=== PATIENT | female | born 1960 | race Caucasian/White ===

== ENCOUNTER 2024-02-01 10:19 | Observation (INO) ==
--- NOTE | 2023-11-23 15:31 | PAT Medication Instructions ---
Medication Instructions Date of Service November 23, 2023 Home Medications cholecalciferol (vitamin D3) 50 mcg (2,000 unit) capsule 50 mcg PO QPM esomeprazole magnesium 20 mg capsule,delayed release (Nexium) 20 mg PO QAM famotidine 20 mg tablet 20 mg PO HS PRN gerd levothyroxine 100 mcg capsule 100 mcg PO QAM mecobalamin (vitamin B12) 500 mcg chewable tablet 500 mcg PO QPM meloxicam 15 mg tablet 15 mg PO DAILY PRN Pain duloxetine 20 mg capsule,delayed release 20 mg PO DAILY PRN pain/anxiety ibuprofen 200 mg tablet 600 mg PO Q8H PRN Pain meclizine 25 mg tablet 25 mg PO BID PRN Dizziness ASK your surgeon for instructions meloxicam 15 mg tablet 15 mg PO DAILY PRN Pain ibuprofen 200 mg tablet 600 mg PO Q8H PRN Pain Take morning of surgery With a small sip of water, OTHERWISE NOTHING TO EAT OR DRINK AFTER MIDNIGHT: esomeprazole magnesium 20 mg capsule,delayed release (Nexium) 20 mg PO QAM levothyroxine 100 mcg capsule 100 mcg PO QAM duloxetine 20 mg capsule,delayed release 20 mg PO DAILY PRN pain/anxiety (if needed) meclizine 25 mg tablet 25 mg PO BID PRN Dizziness (if needed) Take evening before surgery cholecalciferol (vitamin D3) 50 mcg (2,000 unit) capsule 50 mcg PO QPM famotidine 20 mg tablet 20 mg PO HS PRN gerd (if needed) mecobalamin (vitamin B12) 500 mcg chewable tablet 500 mcg PO QPM duloxetine 20 mg capsule,delayed release 20 mg PO DAILY PRN pain/anxiety (if needed) meclizine 25 mg tablet 25 mg PO BID PRN Dizziness (if needed) Other Notes If you have any questions please call us at [phone] or [phone] or [phone] or [phone]
--- NOTE | 2023-12-02 14:24 | Anesthesiology Consultation ---
Date of Service December 02, 2023 Assessment & Plan (1) Encounter for pre-operative examination: Chart Review Chart Review: Acceptable Risk for Surgery and Patient seen in Pre Admission Testing Pt currently scheduled as 23 hours observation. If surgeon decides to change patient to Same Day Joint, patient would be acceptable risk for TKA, pending patient is motivated, has good support and surgeon's office completes [facility] Program preop requirements. Per PAT appt on 12/02/23, no recent illness/disease exposures, illness related symptoms, or recent illness/disease positive tests. Will leave to surgeon's discretion if preop Covid testing needed History Surgery Operation Date: 12/22/23 10:55 Proposed Procedures p Right Total Knee Arthroplasty - Keyshawn Haywood MD Height/Weight Height: 5 ft Weight: 54.2 kg Allergies Allergy/AdvReac Type Severity Reaction Status Date / Time No Known Allergies Allergy Verified 12/02/23 13:05 Medications Home Medications Medication Instructions Recorded Confirmed Last Taken cholecalciferol (vitamin D3) 50 50 mcg PO QPM 04/08/23 12/02/23 Unknown mcg (2,000 unit) capsule esomeprazole magnesium 20 mg 20 mg PO QAM 04/08/23 12/02/23 Unknown capsule,delayed release (Nexium) famotidine 20 mg tablet 20 mg PO HS PRN gerd 04/08/23 12/02/23 Unknown levothyroxine 100 mcg capsule 100 mcg PO QAM 04/08/23 12/02/23 Unknown mecobalamin (vitamin B12) 500 mcg 500 mcg PO QPM 04/08/23 12/02/23 Unknown chewable tablet meloxicam 15 mg tablet 15 mg PO DAILY PRN Pain 04/08/23 12/02/23 Unknown duloxetine 20 mg capsule,delayed 20 mg PO DAILY PRN pain/anxiety 11/23/23 12/02/23 Unknown release ibuprofen 200 mg tablet 600 mg PO Q8H PRN Pain 11/23/23 12/02/23 Unknown meclizine 25 mg tablet 25 mg PO BID PRN Dizziness 11/23/23 12/02/23 Unknown walker #1 ea 12/03/23 Unknown Past Medical History Medical History (Updated 12/02/23 @ 14:30 by Flora Kwok PA-C) Arthritis Elevated cholesterol being monitored GERD (gastroesophageal reflux disease) Well controlled and stable with Nexium History of vertigo no current issues- has meclizine PRN Hypothyroidism Situational anxiety Exercise / Class Metabolic Activity II 4-5 Yardwork/Stairs/Walk up hill (one flight of stairs - no chest pain or SOB ) Past Surgical History Surgical History History of anesthesia reaction slow to wake up History of carpal tunnel release left History of section x 1 History of cholecystectomy History of colonoscopy History of dilatation and curettage History of esophagogastroduodenoscopy (EGD) History of postoperative nausea and vomiting History of surgery "blood collection removed from voice box, was in my 40's" History of tooth extraction Past Anesthesia History No Hx of Anesthesia Complications (with exception to slow to wake- groggy- no reintubation or ICU stay; PONV) and No Family Hx of Anesthesia Complications (with exception to sister- slow to wake, hypotension and PONV ) History of PONV No Hx of Motion Sickness, Other (vertigo ) and History of PONV (improved with pre-medication with anti nausea medication ) Social History Smoking Status: Former smoker Do You Dip or Chew Tobacco: No Smoking End Date: 2014 Hx Alcohol Use: Yes Alcohol type: beer alcohol intake frequency: a few times a month substance use type: does not use Review of Systems - Hx of snoring- no witnessed apnea - no hx of sleep study Patient denies chest pain, shortness of breath, dyspnea on exertion, cough, wheezing, palpitations. No hx of seizures, stroke, LA. No hx of blood clots or blood transfusions Physical Exam Vital Signs VITALS BP 119/78 P 69 TEMP 98.0 SP02 97% RESP 16 Constitutional no acute distress ENMT Mouth: no TMJ clicking Thyromental Distance: > or= 3.5 Finger Breadths (3.5) Mallampati Class: I Mouth / Teeth: 2 1. Dental repair Missing molars Permanent bridge to top left side/front area Neck neck extension not limited Respiratory normal respiratory effort; no respiratory distress Auscultation: lungs clear to auscultation bilaterally; no wheezes Cardiovascular Rate/Rhythm: regular rate and regular rhythm Heart Sounds: no murmur Vessels: no carotid bruit Musculoskeletal Spine: + pain with cervical ROM (mild neck stiffness ) Extremities: extremities normal to inspection Psychiatric Orientation: alert Lab Results Anesthesia Preop Results Results Anesthesia Widget: 2 WBC 5.18 K/ul (4.8-10.8) 12/02/23 Hgb 12.2 g/dl (12.0-16.0) 12/02/23 Hct 36.9 % (37.0-47.0) L 12/02/23 Plt 248 K/uL (130-400) 12/02/23 Na 140 mmol/L (136-145) 12/02/23 K 3.8 mmol/L (3.5-5.1) 12/02/23 Cl 107 mmol/L (98-107) 12/02/23 CO2 27 mmol/L (21-32) 12/02/23 BUN 15 mg/dl (6-23) 12/02/23 Creat 0.69 mg/dl (0.6-1.2) 12/02/23 Glucose Level 87 mg/dl (70-99(Fasting)) 12/02/23 PT 10.6 Seconds (9.0-12.0) 12/02/23 PTT 26 Seconds (21-31) 12/02/23 INR 1.0 (0.9-1.1) 12/02/23 Blood Type O Positive 12/02/23 Antibody Screen NEGATIVE 12/02/23 Testing Electrocardiogram Date: 12/02/23 Findings: + SB @ (53bpm) Otherwise normal EKG per cardio Chest X-Ray Date: 12/02/23 FINDINGS: PA and lateral chest radiographs are obtained. No prior studies are available for comparison at the time of dictation. The cardiomediastinal silhouette is unremarkable noting atherosclerotic calcification of the thoracic aorta. The lungs and pleural spaces are clear. There is no pneumothorax. The bony thorax appears intact. Cholecystectomy clips are seen in the right upper quadrant. IMPRESSION: No active disease in the chest.
--- NOTE | 2024-01-24 20:07 | History & Physical Report ---
Date of Service January 24, 2024 Assessment & Plan (1) Degenerative arthritis of knee, bilateral: 63-year-old female with advanced bilateral knee DJD right side greater than left. She has failed conservative measures. She is Akiko proceed with knee replacement. We had scheduled previously but she got canceled due to the IVF saline shortage. This has been corrected and were going to proceed with right knee replacement. The risks of Brenda of total knee replacement were explained and she understands. Informed consent was obtained. She is planned to be discharged to home with home health. Will use aspirin for DVT prophylaxis. (2) GERD (gastroesophageal reflux disease): (3) Hypothyroidism: (4) Elevated cholesterol: History of Present Illness Chief Complaint: . Bilateral knee pain and discomfort right side greater than the left. Primary Care Provider: NO PCP . The patient is a 63-year-old female from [facility] who presents for surgical treatment of her right knee. She has a 4 to 5-year history of increasing bilateral knee pain discomfort is gradually gotten worse over time. She has been through extensive conservative treatment provided at [facility] by both Dr. Cardenas and Dr. Pryor over the years. I have been following for the past year. The injection and become less successful. The right knee bothers him more than the left. She like to proceed with right knee replacement. The patient was previously scheduled for knee surgery. Unfortunately, we had to cancel her surgery due to the IV saline shortage. She now presents for definitive knee replacement of her right knee. Allergies Allergy/AdvReac Type Severity Reaction Status Date / Time No Known Allergies Allergy Verified 01/24/24 13:48 Home Medications Medication Instructions Recorded Confirmed Type cholecalciferol (vitamin D3) 50 50 mcg PO QPM 04/08/23 01/24/24 History mcg (2,000 unit) capsule esomeprazole magnesium 20 mg 20 mg PO QAM 04/08/23 01/24/24 History capsule,delayed release (Nexium) famotidine 20 mg tablet 20 mg PO HS PRN gerd 04/08/23 01/24/24 History levothyroxine 100 mcg capsule 100 mcg PO QAM 04/08/23 01/24/24 History mecobalamin (vitamin B12) 500 mcg 500 mcg PO QPM 04/08/23 01/24/24 History chewable tablet meloxicam 15 mg tablet 15 mg PO DAILY PRN Pain 04/08/23 01/24/24 History duloxetine 20 mg capsule,delayed 20 mg PO DAILY PRN pain/anxiety 11/23/23 01/24/24 History release ibuprofen 200 mg tablet 600 mg PO Q8H PRN Pain 11/23/23 01/24/24 History meclizine 25 mg tablet 25 mg PO BID PRN Dizziness 11/23/23 01/24/24 History walker #1 ea 12/03/23 Rx acetaminophen 500 mg tablet 1,000 mg (2 x 500 mg) PO TID pain 12/20/23 01/24/24 Rx (Tylenol Extra Strength) 30 days #180 tabs aspirin 81 mg tablet,delayed 81 mg PO BID 45 days #90 tabs 12/20/23 01/24/24 Rx release (Jeni Low Dose Aspirin) cefadroxil 500 mg capsule 500 mg PO BID 7 days #14 caps 12/20/23 01/24/24 Rx ketorolac 10 mg tablet 10 mg PO Q6 pain 5 days #20 tabs 12/20/23 01/24/24 Rx ondansetron 4 mg disintegrating 4 mg PO Q8 PRN nausea #20 tabs 12/20/23 01/24/24 Rx tablet oxycodone 5 mg tablet 5 - 10 mg (1 - 2 x 5 mg) PO Q8H 12/20/23 01/24/24 Rx PRN pain #40 tabs sennosides 8.6 mg tablet (Senokot) 8.6 mg PO BID prevent constipation 12/20/23 01/24/24 Rx 14 days #28 tabs Past Med/Surg History Problem List Degenerative arthritis of knee, bilateral Medical History History of vertigo no current issues- has meclizine PRN Arthritis GERD (gastroesophageal reflux disease) Well controlled and stable with Nexium Hypothyroidism Situational anxiety Elevated cholesterol being monitored Surgical History History of anesthesia reaction slow to wake up History of postoperative nausea and vomiting History of dilatation and curettage History of carpal tunnel release left History of esophagogastroduodenoscopy (EGD) History of colonoscopy History of section x 1 History of cholecystectomy History of tooth extraction History of surgery "blood collection removed from voice box, was in my 40's" Social History Smoking Status: Former smoker Tobacco Type: Cigarettes Second Hand Exposure: Yes (in the past); Do You Dip or Chew Tobacco: No; Hx Alcohol Use: Yes Alcohol type: beer Hx Substance Use: No Preferred Language: Burundian Communication Ability: Effective Signal Maintainer Required: No Beliefs That Will Affect Care: None Current Living Situation: Spouse Feels Safe at Home: Yes Assistive Devices: Glasses Review of Systems All systems reviewed & are unremarkable except as noted in HPI & below. Physical Exam . Physical examination reveals a pleasant healthy female. Examination of both knees reveal patient ambulates independently but with an antalgic gait. She got varus alignment to both knees. Examination right knee reveals varus alignment. She got bony approach immediate ly. Pretty stiff knee with about a 15 degree flexion contracture only bends about 105 degrees. No particular pain with hip motion. Examination left knee reveals a similar varus deformity. Tender medially. Bony hypertrophy medially. Small knee effusion. Range of motion 5-1 20. No instability. No pain with hip motion on either side. Constitutional WD/WN, vitals as above Neck trachea midline, no thyromegaly Respiratory normal respiratory effort, lungs clear to auscultation Cardiovascular RRR, no murmur, no edema Gastrointestinal (Abdomen) normal bowel sounds, soft, nontender, no hepatosplenomegaly Results & Data Results & Data Laboratory Results . Diagnostic Findings . X-rays of both knees were reviewed. Shows advanced bilateral knee DJD. She got complete loss of the medial joint space on both sides. They look pretty equal in severity on x-ray. PG Care Time/CCT Total # of Minutes Spent Total Time Spent with Patient: Total time spent is greater than 50% in coordination of care (as documented) at patient's floor/unit and/or counseling patient: Coding Level of Care Code None Diagnoses Degenerative arthritis of knee, bilateral M17.0 GERD (gastroesophageal reflux disease) K21.9 Hypothyroidism E03.9 Elevated cholesterol E78.00
[~2024-02-01 10:19] MED LIST: ACETAMINOPHEN 500 MG TAB PO SCH; CeleBREX 200 MG CAP PO SCH; FAMOTIDINE 20 MG TAB PO SCH; LR 500ML BOLUS, THEN 15ML/HR IV SCH; LR 60ML/HR IV SCH; METOCLOPRAMIDE HCL 10 MG TABLET PO SCH; ROPIV 0.5% 246mg, Ketorolac 30mg, EPINEPHrine 0.5mg in NSS INFIL SCH; ROPIVACAINE 0.5% 5 MG/ML 30 ML VIAL ONE; TRANEXAMIC ACID 1,000 MG **IV Intra-op IV SCH; ceFAZolin 2000MG 2,000 MG/15 ML SYR IV SCH
--- NOTE | 2024-02-01 10:38 | History & Physical Bridge Note ---
Date of Service February 01, 2024 History & Physical Bridge Note I have examined the patient, reviewed the History & Physical and in the interval since the performance of the History & Physical I have noted the following changes of clinical significance. This patient has severe knee arthritis in both knees. In addition to the right knee replacement today, were going to do an aspiration and injection of the left knee. This is being done at her request.
[2024-02-01] MEDS: SODIUM CHLORIDE 0.9% 1,000 ML IV SCH (11:16)
[2024-02-01] MEDS: CeleBREX 200 MG CAP PO SCH (11:42)
[2024-02-01] MEDS: ACETAMINOPHEN 500 MG TAB PO SCH ×2 (11:42→20:52)
[2024-02-01] MEDS: METOCLOPRAMIDE HCL 10 MG TABLET PO SCH (11:43)
[2024-02-01] MEDS: FAMOTIDINE 20 MG TAB PO SCH (11:43)
[2024-02-01] MEDS ORDERED: ePHEDrine sulfate 50 MG/ML AMP IV PRN (12:09)
[2024-02-01] MEDS ORDERED: HYDROmorphone INJ 1 MG/ML SYRINGE IV PRN (12:09)
[2024-02-01] MEDS ORDERED: fentaNYL citrate PF 100 MCG/2 ML VIAL IV PRN (12:09)
[2024-02-01] MEDS ORDERED: ONDANSETRON INJ 2 MG/ML 2 ML VIAL IV PRN ×2 (12:09→17:32)
[2024-02-01] MEDS ORDERED: ATROPINE SULFATE 0.1 MG/ML 10ML SYR IV PRN (12:09)
[2024-02-01] MEDS ORDERED: LIDOCAINE 2% 2 ML VIAL/AMP(20MG/ML) INFIL ONE (12:10)
[2024-02-01] MEDS ORDERED: PROPOFOL IV EMULSION 10 MG/ML 20 ML VIAL IV ONE (12:10)
[2024-02-01] MEDS ORDERED: MIDAZOLAM HCL 1 MG/ML 2ML VIAL ONE ×2 (12:14)
[2024-02-01] MEDS: ceFAZolin 2000MG 2,000 MG/15 ML SYR IV SCH (13:31)
[2024-02-01] MEDS: BETAMETH SOD PHOS/ACETATE IA 6 MG/ML IM ONE (13:40)
[2024-02-01] MEDS: BUPIVACAINE 0.5 % 5 MG/1 ML MPF 30ML VIAL ONE (13:40)
[2024-02-01] MEDS: TRANEXAMIC ACID 1,000 MG **IV Intra-op IV SCH (14:21)
[2024-02-01] MEDS ORDERED: ePHEDrine sulfate 50 MG/5 ML SYR ONE (14:23)
[2024-02-01] MEDS: ROPIV 0.5% 246mg, Ketorolac 30mg, EPINEPHrine 0.5mg in NSS INFIL SCH (14:25)
[2024-02-01] MEDS: ORTHO JOINT ANESTHETIC ONE (14:26)
--- NOTE | 2024-02-01 15:18 | Operative Report ---
PG Post Operative Report Pre & Post Diagnosis Operation Date: 02/01/24 12:30 Pre-Op Diagnosis: Bilateral knee Degenerative Joint Disease, Left Knee Effusion Post-Op Diagnosis: Bilateral Knee Degenerative Joint Disease, Left Knee Effusion I identified the patient and participated in the time-out.: Yes Procedure Operation Date: 02/01/24 12:30 Actual Procedures p Right Total Knee Arthroplasty(Right) - Keyshawn Haywood MD p Left Knee Aspiration and Injection(Left) - Keyshawn Haywood MD Surgeon Keyshawn Haywood MD Ruffling Machine Operator Yonatan Capone PA-C Estimated Blood Loss 50 Findings Consistent with Post-Op Diagnosis Operative findings revealed a large left knee joint effusion. She had a varus alignment to the left knee. Range of motion is about 5-1 20. Operative findings of the right knee revealed fixed varus deformity. Moderate to large knee joint effusion. Range of motion 5-1 25. She had advanced right knee medial compartment arthritis with extensive eburnation of the entire medial compartment. She had grade 4 patellofemoral joint disease as well. Specimens None Anesthesia Type Spinal Complications none Disposition Accompanied Patient To Recovery: No Indications Patient 63-year-old female has had a long history of bilateral knee pain discomfort describes gotten worse over time. She failed conservative measures. X-rays showed advanced bilateral knee DJD. She elected to see with right total knee replacement. She wanted to have her left knee aspirated injected under anesthesia. Description of Procedure Operative implants consist of: 1. Biomet Vanguard size 62.5 right posterior stabilized femoral component. 2. Biomet size 63 tibial tray. 3. 10 mm posterior stabilized polyethylene insert. 4. 28 x 8 all poly patella. The patient was taken the operating, identified, placed on the operating table in the supine position. All contact areas were appropriately padded. IV antibiotics fibra anesthesia team. A spinal anesthetic been implemented holding area. A Hidalgo catheter was placed in sterile fashion. Right Tetrick was then placed. Attention was then drawn to the left leg. The left knee was cleaned with alcohol. I aspirated the left knee for a 60 cc of serous fluid. Did not look inflammatory. I injected with 2 cc of Celestone and 8 cc of Marcaine. The patient tolerated procedure well and there were no complications. A bandage was applied and then attention was drawn to the right leg. The right leg was prepped and draped in usual sterile fashion. The right leg was elevated and exsanguinated with use of an Esmarch and a turn was placed at 300 mmHg. An anterior approach to the right knee was then performed to longitudinal incision centered over the patella. Sharp dissection scalp through subcutaneous tissue down the extensor mechanism. A medial parapatellar arthrotomy incision was made. Some subperiosteal dissection was carried out medially. The fat pad was resected including the patella tendon. The patellofemoral ligament was released. The patella subluxated laterally and the knee was flexed. The osteophytes taken off distal femur. The ACL and PCL were then released from the distal femur and the tibia subluxate anteriorly. The external tibial alignment jig was then placed on the interface the tibia and adjusted 14 mm medially. Proximal tibial cut was made remove about 2 mm of bone from the medial side. Some osteophytes taken off medially. The tibia sized to a size 63. Attention then drawn to the femur. The distal femur was entered with a sharp drill. Intramedullary canal was suction. Right 5 degree valgus cutting guide was placed. The distal femoral cutting block was pinned in place. Distal femoral cut was made to take an additional 3 mm of bone off distal femur. Femur was then sized to a size 62.5. The AP cutting block was pinned parallel to the epicondylar axis which was 4 degrees of external rotation. The anterior cut, anterior chamfer, posterior cut, posterior chamfer cuts were made through the box cutting guide was placed. The black box cut was made. The knee was flexed. The remnants of the medial and lateral menisci were excised. The osteophytes taken off the posterior aspect of femur. Trial femoral component was placed. The tibial tray was pinned in Marlyn external rotation and the drill and stem point to use great defect in proximal tibia for the tibial tray. Knee was then trialed and the 10 mm insert fit most appropriately. Attention drawn the patella. The patella was cleaned of all soft tissues. Patella thickness measured 20 mm in thickness was cut down to 12. Was sized to size 25 patella. The locals were drilled for the 25 patella. The lateral osteophytes removed. Patella button was placed. Knee was taken through range of motion patella tracked nicely with no thumbs test. Attention was then drawn toward placement permanent components. Nupathe all trial components were removed. Bone plug was placed into this fe mur limit blood loss. Double batch Palacos G cement was mixed. Biomet Vanguard size 62.5 right posterior stabilized femoral component, a size 63 tibial tray, a 10 mm posterior stabilized polyethylene insert, and a 28 x 8 all poly patella then cemented in place. The knee was brought out into full extension toes Hardened. Final cement check was then performed. The pericapsular tissues were injected with total of 100 cc of Ortho mix. The patient did receive 1 g tranexamic acid. The tourniquet was then let down for final tourniquet time 49 minutes. Hemostasis assured use electrocautery. Extensor Meclomen closed with combination 1 PDS suture and 1 Vicryl suture in a [id number] fashion. Extensor Meclomen checked found to be intact in the subcutaneous tissue then closed with 2 Dexon suture in buried interrupted fashion skin was closed skin joselin. Leg was then cleaned and dried and sterile dressing was Xeroform, 4 fours, sterile cast padding, Vahe bandage were applied. Patient then transferred to the recovery room in stable condition. Patient tolerated procedure well and there were no complications. Yonatan Capone, my physician purchasing assistant, was present for the entire procedure. His assistance was essential and required for appropriate patient positioning, prepping and draping, surgical exposure, performing the technical details of the operation, placement the implants, closure of the wound, and placement of the sterile bandage. I attest to the content of the Intraoperative Record and any orders documented therein. Any exceptions are noted below.
--- NOTE | 2024-02-01 15:34 | XRay Report ---
XR knee RT 1 or 2V routine CLINICAL HISTORY: Postoperative evaluation. COMPARISON: Right knee radiographs November 22, 2023. FINDINGS: Alignment of the total right knee arthroplasty is anatomic. There is no periprosthetic fra cture or unexpected radiopaque foreign body. There are skin joselin. IMPRESSION: Expected findings following total right knee arthroplasty. ACT 112: Negative or not required by law. Electronically signed by: Chano Good M.D. 02/01/2024 3:33 PM
--- NOTE | 2024-02-01 16:20 | Anesthesiology Progress Note ---
Date of Service February 01, 2024 Anesthesia Post Procedure Vital Signs Vital Signs: Temp Pulse Resp BP Pulse Ox O2 Del Method 02/01/24 16:05 72 16 104/53 L 98 Room Air 02/01/24 15:55 36.4 C L 70 12 103/57 L 94 Room Air 02/01/24 15:45 77 21 107/59 L 94 Room Air 02/01/24 15:35 79 14 100/60 96 Room Air 02/01/24 15:25 79 16 106/58 L 94 Room Air 02/01/24 15:15 85 16 102/58 L 94 Room Air 02/01/24 15:08 36.3 C L 83 19 100/51 L 97 Room Air 02/01/24 10:50 36.6 C 80 18 152/80 H 99 Room Air Transfer of Care Handoff Completed per policy Notes Mental Status: alert / awake / arousable and participated in evaluation Patient Amnestic to Procedure: Yes Nausea / Vomiting: adequately controlled Pain: adequately controlled Airway Patency, RR, SpO2: stable & adequate BP & HR: stable & adequate Hydration State: stable & adequate Neuraxial Anesthesia: was administered and sensory block is resolving Anesthetic Complications: no major complications apparent and Pt Satisfied with anesthetic care
[2024-02-01] MEDS ORDERED: HYDROmorphone INJ 0.5 MG/0.5 ML SYR IV PRN (17:32)
[2024-02-01] MEDS ORDERED: NALOXONE HCL 0.4 MG/1 ML VIAL/CARP IV PRN (17:32)
[2024-02-01] MEDS ORDERED: MAGNESIUM HYDROXIDE SUSP 30 ML UDC PO PRN (17:32)
[2024-02-01] MEDS ORDERED: ONDANSETRON 4 MG OD TAB PO PRN (17:32)
[2024-02-01] MEDS ORDERED: METOCLOPRAMIDE HCL INJ 5 MG/ML 2 ML VIAL IV PRN (17:32)
[2024-02-01] MEDS ORDERED: oxyCODONE HCL IR 5 MG TAB (IMMEDIATE RELEASE) PO PRN (17:32)
[2024-02-01] MEDS ORDERED: ALUMINUM/MAGNESIUM SUSP 30 ML UDC PO PRN (17:32)
[2024-02-01] MEDS ORDERED: DULoxetine HCL 20 MG CAP PO PRN (17:32)
[2024-02-01] MEDS ORDERED: MECLIZINE HCL 25 MG TAB PO PRN (17:32)
[2024-02-01] MEDS ORDERED: FAMOTIDINE 20 MG TAB PO PRN (17:32)
[2024-02-01] MEDS ORDERED: bisacodyL 10 MG SUPP PR PRN (17:32)
[2024-02-01] MEDS: KETOROLAC TROMETHAMINE 15 MG/ML VIAL IV SCH (18:00)
[2024-02-01] MEDS: ASCORBIC ACID 500 MG TAB PO SCH (20:52)
[2024-02-01] MEDS: CHOLECALCIFEROL 25 MCG (1000 UNITS) TAB PO SCH (20:53)
[2024-02-01] MEDS: ASPIRIN 81 MG ECTAB PO SCH (20:53)
[2024-02-01] MEDS: DOCUSATE SODIUM 100 MG CAP PO SCH (20:54)
[2024-02-01] MEDS: TRANEXAMIC ACID / 0.7% NACL 1,000 MG/100 ML BAG IV SCH (20:54)
[2024-02-01] MEDS: ceFAZolin 1000MG 1,000 MG/7.5 ML SYR IV SCH (20:54)
[2024-02-01] MEDS: SENNA 8.6 MG TAB PO SCH (20:54)
[2024-02-01] MEDS: CYANOCOBALAMIN (B-12) 500 MCG TABLET PO SCH (20:54)
[2024-02-01] MEDS ORDERED: SENNA 8.6 MG TAB PO SCH (21:00)
[2024-02-02] MEDS: LEVOTHYROXINE SODIUM 100 MCG TABLET PO SCH (05:46)
--- NOTE | 2024-02-02 06:52 | Orthopedic Progress Note ---
Date of Service February 02, 2024 Assessment & Plan (1) Status post total right knee replacement: POD 1 from right tka and left knee asp/injection. Pain controlled. PT/OT wbat dvt prophylaxis: teds, scd's, and aspirin labs pending d/c planning: home with home health today after therapy if PT goes well. will discuss with Dr Yobany Lance . 63 year old patient POD 1 from right tka and left knee aspiration/injection. Doing pretty well. Some thigh discomfort in her right leg and difficulty lifting her leg. Left knee is doing well. Review of Systems All systems reviewed & are unremarkable except as noted in HPI & below. Physical Exam . alert and oriented. NAD VSS labs pending Right leg: Dressing clean, dry, intact. Difficulty doing SLR. Able to DF/PF and move toes. NVI Results & Data Results & Data Laboratory Results . Diagnostic Findings . PG Care Time/CCT Total # of Minutes Spent Total Time Spent with Patient: Total time spent is greater than 50% in coordination of care (as documented) at patient's floor/unit and/or counseling patient: Coding Level of Care Code 43867 Post Operative Follow-Up Diagnoses Status post total right knee replacement Z96.651
[2024-02-02] MEDS: dexAMETHasone 10 MG in SYRINGE 0 ML IV SCH (07:14)
[2024-02-02] MEDS: MULTIVITAMIN TAB PO SCH (07:19)
[2024-02-02] MEDS: PANTOprazole 40 MG TAB PO SCH (07:19)
[2024-02-02 07:27] LABS: Hematocrit (blood only) 32.8 % (37.0-47.0); Mean Corpuscular Hemoglobin 29.5 pg (25.0-34.0); Mean Corpuscular Hgb Conc 33.5 g/dL (32.0-36.0); Mean Corpuscular Volume 87.9 fL (80.0-100.0); Mean Platelet Volume 10.9 fL (9.4-12.4); Platelet Count 240 K/uL (130-400); RDW Coefficient of Variation 12.7 % (11.5-14.5); RDW Standard Deviation 40.5 fL (36.4-46.3); Red Blood Count 3.73 M/uL (4.20-5.40); White Blood Count 12.56 K/ul (4.8-10.8)
[2024-02-02 07:48] LABS: BUN Creatinine Ratio 22.2 (10-20)
--- OUTSIDE RECORDS SUMMARY | 2024-02-02 17:26 | External Medical Summary | Summary of Care ---
Author Name Unknown Organization [facility] Address [address] [place] [address] Phone [phone] Care Team Providers Care Play Therapist Name Role Phone Gabi Monreal PA-C Primary Care Provider [phone] Reason for Visit * Reason Onset Date Comments Medication Refill 01/05/2024 Encounter Details Date Type Department Care Team ([facility] st Contact Info) Description 01/05/2024 Refill [facility] [address] [place] [phone] Gabi Monreal PA-C [address] [place] [phone] Benign positional vertigo, unspecified laterality Allergies No known active allergiesdocumented as of this encounter (statuses as of 01/06/2024) Medications Medication Sig Dispensed Refills Start Date End Date Status Cyanocobalamin (B-12) 1000 MCG SUBLIndications:Anxi ety one daily under tongue 100 Tab 3 07/29/2016 Active Esomeprazole Magnesium 10 MG Oral Packet Take 10 mg by mouth daily before breakfast. Active Vitamin D3 50 MCG (1999 UT) Oral Capsule Take 1 Capsule by mouth in the morning. Active DULoxetine HCl 20 MG Oral Capsule Delayed Release Particles (Cymbalta)Indication s:Depressive disorder Take 1 Capsule by mouth in the morning. Do not cut, crush or chew. 90 Capsule 3 04/26/2023 Active Levothyroxine Sodium 100 MCG Oral Tablet (Levoxyl)Indications :Acquired hypothyroidism Take 1 Tablet by mouth in the morning. (at least 30 min prior to breakfast or other meds). 90 Tablet 3 09/22/2023 Active Meclizine HCl 25 MG Oral Tablet (Antivert) Take 1 Tablet by mouth 3 times a day as needed for Dizziness. 30 Tablet 01/06/2024 Active Meclizine HCl 25 MG Oral Tablet (Antivert)Indication s:Benign positional vertigo, unspecified laterality TAKE 1 TABLET BY MOUTH NEEDED IN THE MORNING, TAKE 1 TAB NEEDED AT NOON, AND TAKE 1 TAB NEEDED IN THE EVENING FOR DIZZINESS 30 Tablet 12/08/2021 4 Discontinue d(Medicatio n List Clean Up) documented as of this encounter (statuses as of 01/06/2024) Active Problems Problem Noted Date Diagnosed Date History of ischemic bowel disease 04/22/2016 Anxiety 04/22/2016 Benign positional vertigo 06/17/2015 Hypothyroidism 05/29/2014 Family history of ischemic heart disease 007 GERD (gastroesophageal reflux disease) 7 HISTORY OF TOBACCO USE 12/04/2005 documented as of this encounter (statuses as of 01/06/2024) Resolved Problems Problem Noted Date Diagnosed Date Resolved Date Overweight (BMI 25.0-29.9) 06/24/2021 0 10/18/2023 Tobacco use disorder 04/22/2016 018 Benign positional vertigo 06/17/2015 Hypothyroidism 06/17/2015 04/22/2016 Lymphosarcoma, 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 CLL (chronic lymphocytic leukemia) 05/29/2014 04/28/2017 Hyperlipidemia with target LDL less than 160 3 04/28/2017 Colitis, ischemic 11/03/2011 04/22/2016 Carpal tunnel syndrome 02/04/200709/27 documented as of this encounter (statuses as of 01/06/2024) Immunizations Name Administration Dates Next Due Seasonal Influenza Vac., MDV , IM, 0.5 mL (Fluzone) 12/13/2013,12/01/2010,12/13/2009, 009 documented as of this encounter Social History Tobacco Use Types Packs/Day Years Used Date Smoking Tobacco: Former Cigarettes 0.5 35 1 - 11/29/2016 Smokeless Tobacco: Never Alcohol Use Standard Drinks/Week Comments Yes 0 (1 standard drink = 0.6 oz pur e alcohol) occasionally PHQ-2 Answer Date Recorded PHQ Adult Total Score 0 02/11/2022 Hunger Vital Sign Answer Date Recorded Within the past 12 months, y ou worried that your food would run out before you got the money to buy more. Never true 10/28/19 23 Within the past 12 months, t he food you bought just didn't last and you didn't have money to get more. Never true 10/27/2022 Sex and Gender Information Value Date Recorded Sex Assigned at Female 12/13/2018 8:36 AM EDT Gender Identity Female 12/13/2018 8:36 AM EDT Sexual Orientation Straight 12/13/2018 8: 36 AM EDT Job Start Date Occupation Industry Not on file Not on file Not on file documented as of this encounter Miscellaneous Notes * Telephone Encounter - Gabi Monreal PA-C - 01/06/2024 3:55 PM ESTSigned Prescriptions: Disp Refills Meclizine HCl 25 MG Oral Tablet (Antivert) 30 Tab*0 Sig: Take 1 Tablet by mouth 3 times a day as needed for Dizziness. Authorizing Provider: GABI MONREAL Refused Prescriptions: Disp Refills Meclizine HCl 25 MG Oral Tablet (Antivert) 30 Tab*0 Sig: TAKE 1 TABLET BY MOUTH NEEDED IN THE MORNING, TAKE 1 TAB NEEDED AT NOON, AND TAKE 1 TAB NEEDED IN THE EVENING FOR DIZZINESS Refused By: KATEY ONEIL Reason for Refusal: Other (comment below) * Telephone Encounter - Katey Oneil [facility] - 01/06/2024 12:16 PM EST Pending Prescriptions: Disp Refills Meclizine HCl 25 MG Oral Tablet (Antivert) 30 Tab*0 Sig: Take 1 Tablet by mouth 3 times a day as needed for Dizziness. Refused Prescriptions: Disp Refills Meclizine HCl 25 MG Oral Tablet (Antivert) 30 Tab*0 Sig: TAKE 1 TABLET BY MOUTH NEEDED IN THE MORNING, TAKE 1 TAB NEEDED AT NOON, AND TAKE 1 TAB NEEDED IN THE EVENING FOR DIZZINESS Refused By: KATEY ONEIL Reason for Refusal: Other (comment below) * Telephone Encounter - Katey Oneil [facility] - 01/06/2024 12:13 PM EST Pending Prescriptions: Disp Refills Meclizine HCl 25 MG Oral Tablet (Antivert)30 Tab*0 Sig: Take 1 Tablet by mouth 3 times a day as needed for Dizziness. Refused Prescriptions: Disp Refills Meclizine HCl 25 MG Oral Tablet (Antivert) 30 Tab*0 Sig: TAKE 1 TABLET BY MOUTH NEEDED IN THE MORNING, TAKE 1 TAB NEEDED AT NOON, AND TAKE 1 TAB NEEDED IN THE EVENING FOR DIZZINESS Refused By: KATEY ONEIL Reason for Refusal: Other (comment below) Last Visit: 10/18/2023 (in office), Visit date not found (telemedicine) Next Visit: 04/25/2024 If no future appointments scheduled, and last appointment is greater than a year ago, please schedule patient for a follow-up appointment Last date the medication was ordered: 12/08/21 Is this request for a controlled substance?No Urine Drug Screen:No results found for this or any previous visit. Patient Phone Numbers Labs: Lab Results Component Value Date/Time CREAT 0.67 06/12/2023 12:00 AM CREAT 0.8 04/30/2016 02:31 PM POTASSIUM 4.2 06/12/2023 12:00 AM POTASSIUM 3.9 04/30/2016 02:31 PM TSH 0.34 04/21/2023 09:59 AM TSH 2.74 12/21/2018 12:00 AM TSH 1.91 11/19/2016 11:07 AM LDL 141 (H) 10/07/2021 07:49 AM LDL 139 (H) 04/22/2016 01:25 PM LDL NOT APPLICABLE 04/22/2016 01:25 PM LDLCALC 160 (A) 06/12/2023 12:00 AM ALT 22 10/28/2022 10:06 AM ALT 15 04/30/2016 02:31 PM HGBA1C 5.5 10/01/2020 09:08 AM documented in this encounter Plan of Treatment Upcoming Encounters Date Type Department Care Team ([facility] Contact Info) Description 04/18/2024 9:00 AM EST Laboratory Laboratory Patient Service [address] [phone] [address] 04/25/2024 10:20 AM EST Office Visit [address] [phone] William Padilla MD [address] [place] [phone] Health Maintenance Due Date Last Done Comments HIV Screening 1973 DTap/Tdap Vaccines (1 - Tdap) 1977 Sigmoidoscopy 09/21/2003 Zoster Vaccines (1 of 2) 2008 Colonoscopy 12/24/2018 12/24/2008 Pneumococcal Vaccine: 65+ Years (1 of 1 - PCV) 09/21/2023 Fecal Occult Blood Test 10/20/2023 10/20/19 23, 10/19/2022, 11/04/2011 COVID-19 Vaccine (1 - season) 2023 Influenza Vaccine (FLU shot) (#1) 2023 12/13/2013, 12/01/2010, 12/13/2009, Additional history exists TSH 04/21/2024 04/21/2023, 10/01, 11/19/2021, Additional history exists Depression Screening 10/17/2024 10/18/2023 Mammogram 12/16/2024 12/17/2023, 11/29, 11/26/2021, Additional history exists DXA Scan 12/16/2025 12/17/2023 Cologuard 05/12/2026 05/13/2023, 03/0 07/2023, 05/05/2023 Colorectal Cancer Screening 05/12/2026 Diabetes Screening 06/11/2026 06/12/2023, 0 10/28/2022, 10/01/2020, Additional history exists Lipid Panel 06/11/2028 06/12/2023, 08/0 10/2021, 10/01/2020, Additional history exists Hepatitis C Screening Completed 01/11/2007 RETIRED - COLONOSCOPY-EVERY 5 YRS AGES 18-100 Discontinued 12/24/2008 Cervical Cancer Screening Discontinued Pap Smear Discontinued 12/25/2020, 04/30, 05/22/2011 (Done elsewhere), Additional history exists HPV (Gardasil) Vaccine Aged Out No lo nger eligible based on patient's age to complete this topic HPV/Co-Test Discontinued Hepatitis B Vaccine Aged Out No longe r eligible based on patient's age to complete this topic MENINGOCOCCAL (MENACTRA/MENVEO) Aged Out No longer eligible based on patient's age to complete this topic documented as of this encounter Medical Devices Not on filedocumented as of this encounter Visit Diagnoses Diagnosis Benign positional vertigo, unspecified laterality documented in this encounter Care Teams Play Therapist Relationship Specialty Start Date End Date Gabi Monreal PA-C [address] [place] [phone] PCP - General Physician Assistant Broker 12/20/23 documented as of this encounter
--- OUTSIDE RECORDS SUMMARY | 2024-02-02 17:27 | External Medical Summary | Summary of Care ---
Author Name Unknown Organization [facility] Address [address] [place] [address] Phone [phone] Care Team Providers Care Meter Reader Inspector Name Role Phone William Padilla MD Primary Care Provi ronald Encounter Details Date Type Department Care Team (Latest Contact Info) Description 12/17/2023 1:00 PM EDT - 12/17/2023 1:03 PM EDT Hospital Encounter Radiology, [facility] [address] [place] [address] Arrived Discharge Disposition: Home - Self Care Allergies No known active allergiesdocumented as of this encounter (statuses as of 12/18/2023) Medications Medication Sig Dispensed Refills Start Date End Date Status Cyanocobalamin (B-12) 1000 MCG SUBLIndications:Anxie ty one daily under tongue 100 Tab 3 07/29/2016 Active Esomeprazole Magnesium 10 MG Oral Packet Take 10 mg by mouth daily before breakfast. Active Vitamin D3 50 MCG (1999 UT) Oral Capsule Take 1 Capsule by mouth in the morning. Active Meclizine HCl 25 MG Oral Tablet (Antivert)Indications :Benign positional vertigo, unspecified laterality TAKE 1 TABLET BY MOUTH NEEDED IN THE MORNING, TAKE 1 TAB NEEDED AT NOON, AND TAKE 1 TAB NEEDED IN THE EVENING FOR DIZZINESS 30 Tablet 12/08/2021 Active DULoxetine HCl 20 MG Oral Capsule Delayed Release Particles (Cymbalta)Indications :Depressive disorder Take 1 Capsule by mouth in the morning. Do not cut, crush or chew. 90 Capsule 3 04/26/2023 Active Levothyroxine Sodium 100 MCG Oral Tablet (Levoxyl)Indications: Acquired hypothyroidism Take 1 Tablet by mouth in the morning. (at least 30 min prior to breakfast or other meds). 90 Tablet 3 09/22/2023 Active documented as of this encounter (statuses as of 12/18/2023) Active Problems Problem Noted Date Diagnosed Date History of ischemic bowel disease 04/22/2016 Anxiety 04/22/2016 Benign positional vertigo 06/17/2015 Hypothyroidism 05/29/2014 Family history of ischemic heart disease 007 GERD (gastroesophageal reflux disease) 7 HISTORY OF TOBACCO USE 12/04/2005 documented as of this encounter (statuses as of 12/18/2023) Resolved Problems Problem Noted Date Diagnosed Date [...] as of this encounter (statuses as of 12/18/2023) Immunizations Name Administration Dates Next Due Seasonal [...] on file documented as of this encounter Plan of Treatment Upcoming Encounters Date Type Department Care Team ([facility] st Contact Info) Description 04/18/2024 9:00 AM EST Laboratory Laboratory [facility] Center[address] [phone] [address] 04/25/2024 10:20 AM EST Office Visit [address] [phone] William Padilla MD [address] [place] [phone] Pending Results Name Type Priority Associated Diagnoses Date /Time DEXA SCAN/BONE MINERAL AXIAL Medical Imaging Routine Postmenopausal status, age-related 12/17/2023 1:26 PM EDT Health Maintenance Due Date Last Done Comments HIV Screening 1973 DTap/Tdap Vaccines (1 - Tdap) 1977 Sigmoidoscopy 09/21/2003 Zoster Vaccines (1 of 2) 2008 Colonoscopy 12/24/2018 12/24/2008 DXA Scan 09/21/2023 Pneumococcal Vaccine: 65+ Years (1 of 1 - PCV) 09/21/2023 Fecal Occult Blood Test 10/20/2023 10/20/19, 10/19/2022, 11/04/2011 COVID-19 Vaccine (1 - season) 2023 Influenza Vaccine (FLU shot) (#1) 2023 12/13/2013, 12/01/2010, 12/13/2009, Additional history exists TSH 04/21/2024 04/21/2023, 3 , 11/19/2021, Additional history exists Depression Screening 10/17/2024 10/18/2023 Mammogram 12/16/2024 12/17/2023, 11/29, 11/26/2021, Additional history exists Cologuard 05/12/2026 05/13/2023, 07/2023, 05/05/2023 Colorectal Cancer Screening 05/12/2026 Diabetes Screening 06/11/2026 06/12/2023, 0 10/28/2022, 10/01/2020, Additional history exists Lipid Panel 06/11/2028 06/12/2023, 0810/2021, 10/01/2020, Additional history exists Hepatitis C Screening [...] Not on filedocumented as of this encounter Care Teams Meter Reader Inspector Relationship Specialty Start Date End Date William Padilla MD [address] [place] [phone] PCP - General Family Medicine 10/19/22 documented as of this encounter
--- OUTSIDE RECORDS SUMMARY | 2024-02-02 17:27 | External Medical Summary | Summary of Care ---
Author Name Unknown Organization [facility] Address [address] [place] [address] Phone [phone] Care Team Providers Care Sebd Teacher Name Role Phone Conner Monreal PA-C Primary Care Provider [phone] Reason for Visit * Reason Onset Date Comments Medication Refill 01/05/2024 Encounter Details Date Type Department Care Team ([facility] Contact Info) Description 01/05/2024 Refill [facility] [address] [place] [phone] Conner Monreal PA-C [address] [place] [phone] Depressive disorder Allergies No known active allergiesdocumented as of this encounter (statuses as of 01/06/2024) Medications Medication Sig Dispensed Refills Start Date End Date Status Cyanocobalamin (B-12) 1000 MCG SUBLIndications:Anxie ty one daily under tongue 100 Tab 3 07/29/2016 Active Esomeprazole Magnesium 10 MG Oral Packet Take 10 mg by mouth daily before breakfast. Active Vitamin D3 50 MCG (1999) Oral Capsule Take 1 Capsule by mouth [...] encounter Miscellaneous Notes * Telephone Encounter - Eron Espino [facility] - 01/06/2024 10:27 AM ESTRefused Prescriptions: Disp Refills DULoxetine HCl 20 MG Oral Capsule Delayed *90 Cap*3 Sig: Take 1Capsule by mouth in the morning. Do not cut, crush or chew.Refused By: ERON ESPINO forRefusal: Duplicate Request documented in this encounter Plan of Treatment Upcoming Encounters Date Type Department Care Team ([facility] st Contact Info) Description 04/18/2024 9:00 AM EST Laboratory Laboratory [facility] Center[address] [phone] [place] [address] [place] [phone] 04/25/2024 10:20 AM EST Office Visit [address] [phone] William Padilla MD [address] [place] [phone] Health Maintenance Due Date Last Done Comments [...] as of this encounter Visit Diagnoses Diagnosis Depressive disorder Depressive disorder, not elsewhere classified documented in this encounter Care Teams Sebd Teacher Relationship Specialty Start Date End Date Conner Monreal PA-C [address] [place] [phone] PCP - General Physician Community Center Director 12/20/23 documented as of this encounter
--- OUTSIDE RECORDS SUMMARY | 2024-02-02 17:29 | External Medical Summary | Summary of Care ---
Author Name Unknown Organization [facility] Address [address] [place] [address] Phone [phone] Care Team Providers Care Account Executive Trainee Name Role Phone William Padilla MD Primary Care Provi ronald Encounter Details Date Type Department Care Team (Latest Contact Info) Description 12/17/2023 1:04 PM EDT - 12/17/2023 11:59 PM EDT Hospital Encounter Radiology, [facility] [address] [place] [address] Arrived Discharge Disposition: Home - Self Care [...] Upcoming Encounters Date Type Department Care Team ([facility] st Contact Info) Description 04/18/2024 9:00 AM EST Laboratory Laboratory [facility] Center[address] [phone] [address] 04/25/2024 10:20 AM EST Office Visit Family [address] [phone] William Padilla MD [address] [place] [phone] Health Maintenance Due Date Last Done Comments HIV Screening 1973 DTap/Tdap Vaccines (1 - Tdap) 1977 Sigmoidoscopy 09/21/2003 Zoster Vaccines (1 of 2) 2008 Colonoscopy 12/24/2018 12/24/2008 DXA Scan 09/21/2023 Pneumococcal Vaccine: 65+ Years (1 of 1 - PCV) 09/21/2023 Fecal Occult Blood Test 10/20/2023 10/20/19, 10/19/2022, 11/04/2011 COVID-19 Vaccine (1 - 2023- season) 2023 Influenza Vaccine (FLU shot) (#1) [...] Not on filedocumented as of this encounter Procedures Procedure Name Priority Date/Time Associated Diagnosis Comments MAMMOGRAM SCREENING MAURA BILATERAL Routine 12/17/2023 1:55 PM EDT Encounter for screening mammogram for breast cancer documented in this encounter Results * MAMMOGRAM SCREENING MAURA BILATERAL (12/17/2023 1:55 PM EDT) Anatomical Region Laterality Modality Breast Bilateral Mammography Narrative 12/17/2023 3:36 PM EDT Result MAMMOGRAM SCREENING MAURA BILATERAL History Encounter for screening mammogram for breast cancer Family medical history includes breast cancer in cousin (paternal). Films Compared 12/15/2022 MAMMOGRAM SCREENING MAURA BILATERAL, 11/26/2021 MAMMOGRAM DIAGNOSTIC MAURA LEFT, 11/04/2021 MAMMOGRAM SCREENING BILATERAL, 05/05/2016 RADIOLOGY EXAM - MAMMOGRAPHY (IMAGES ONLY, NO REPORT), 03/16/2014 RADIOLOGY EXAM - MAMMOGRAPHY (IMAGES ONLY, NO REPORT), and 04/21/2012 RADIOLOGY EXAM - MAMMOGRAPHY (IMAGES ONLY, NO REPORT) Findings There are scattered areas of fibroglandular density. There is no evidence of suspicious masses, calcifications, or other abnormal findings. Impression Bilateral No mammographic evidence of malignancy. BI-RADS Category: 1 - Negative. Recommendation Screening mammogram in 1 year is recommended for both breasts. Digital breast tomosynthesis was performed. This digital mammogram has been analyzed with the computer aided detection system. Breast tissue can be either dense or not dense. Dense tissue makes it harder to find breast cancer on a mammogram and also raises the risk of developing breast cancer. Your breast tissue is not dense. Talk to your healthcare provider about breast density, risks for breast cancer, and your individual situation. This examination was performed at [facility], [address] [place] [address]. [phone] Conner Monreal PA-C RAD MAMMOGRAPHY documented in this encounter Visit Diagnoses Diagnosis Encounter for screening mammogram for breast cancer documented in this encounter Care Teams Account Executive Trainee Relationship Specialty Start Date End Date William Padilla MD [address] [place] [phone] PCP - General Family Medicine 10/19/22 documented as of this encounter
== END 2024-02-02 11:45 | disposition home health service (06) ==
LOC: EDBD → 3E 10:19 → ASU 10:19

== ENCOUNTER 2025-02-02 08:50 | Observation (INO) ==
--- NOTE | 2024-12-29 10:13 | PAT Medication Instructions ---
Medication Instructions Date of Service December 29, 2024 Home Medications Medication Instructions Recorded walker #1 ea 12/03/23 cholecalciferol (vitamin D3) 50 mcg (2,000 unit) capsule 50 mcg PO QPM esomeprazole magnesium 20 mg capsule,delayed release (Nexium) 20 mg PO QAM famotidine 20 mg tablet 20 mg PO HS PRN gerd levothyroxine 100 mcg capsule 100 mcg PO QAM mecobalamin (vitamin B12) 500 mcg chewable tablet 500 mcg PO QPM meclizine 25 mg tablet 25 mg PO BID PRN Dizziness rosuvastatin 5 mg tablet 5 mg PO QAM Take morning of surgery With a small sip of water, OTHERWISE NOTHING TO EAT OR DRINK AFTER MIDNIGHT: esomeprazole magnesium 20 mg capsule,delayed release (Nexium) 20 mg PO QAM levothyroxine 100 mcg capsule 100 mcg PO QAM meclizine 25 mg tablet 25 mg PO BID PRN Dizziness (if needed) rosuvastatin 5 mg tablet 5 mg PO QAM Take evening before surgery cholecalciferol (vitamin D3) 50 mcg (2,000 unit) capsule 50 mcg PO QPM famotidine 20 mg tablet 20 mg PO HS PRN gerd (if needed) mecobalamin (vitamin B12) 500 mcg chewable tablet 500 mcg PO QPM meclizine 25 mg tablet 25 mg PO BID PRN Dizziness (if needed) Other Notes If you have any questions please call us at [phone] or [phone] or [phone] or [phone]
--- NOTE | 2025-01-08 11:24 | Anesthesiology Consultation ---
Date of Service January 08, 2025 Assessment & Plan (1) Encounter for pre-operative examination: - Infectious disease screening: Per assessment on 01/08/25- No known recent infectious disease contacts or current infectious disease symptoms. - Outpatient joint assessment: Pt currently scheduled for inpatient pathway. If surgeon requests review for outpatient joint pathway, patient is an acceptable candidate for outpatient joint program from anesthesia standpoint pending surgeon's office assessment that patient is motivated, has good support and completes [facility] Day Joint Program preop requirements. - S/P Right TKA + Left Knee Aspiration and Injection (02/01/24): SAB at L3/4 (1 attempt) + [facility], [facility] Chart Review Chart Review: Acceptable Risk for Surgery and Patient seen in Pre Admission Testing Teaching & Discussion Pre-Anesthesia Teaching/Discussion Notes: Instructed NPO after midnight before surgery,except medications with 15 cc of water. Medication instructions provided according to the PAT guidelines. History Surgery Operation Date: 02/02/25 07:00 Proposed Procedures p Left Total Knee Arthroplasty - Keyshawn Haywood MD Height/Weight Height: 5 ft Weight: 57.7 kg Allergies Allergy/AdvReac Type Severity Reaction Status Date / Time No Known Allergies Allergy Verified 12/27/24 14:32 Medications Home Medications Medication Instructions Recorded Confirmed Last Taken cholecalciferol (vitamin D3) 50 50 mcg PO QPM 04/08/23 12/27/24 01/18/24 mcg (2,000 unit) capsule esomeprazole magnesium 20 mg 20 mg PO QAM 04/08/23 12/27/24 01/31/24 08:30 capsule,delayed release (Nexium) famotidine 20 mg tablet 20 mg PO HS PRN gerd 04/08/23 12/27/24 Unknown levothyroxine 100 mcg capsule 100 mcg PO QAM 04/08/23 12/27/24 02/01/24 07:30 mecobalamin (vitamin B12) 500 mcg 500 mcg PO QPM 04/08/23 12/27/24 01/18/24 chewable tablet meclizine 25 mg tablet 25 mg PO BID PRN Dizziness 11/23/23 12/27/24 Unknown walker #1 ea 12/03/23 Unknown rosuvastatin 5 mg tablet 5 mg PO QAM 12/27/24 12/27/24 Unknown Past Medical History Medical History Arthritis Elevated cholesterol GERD (gastroesophageal reflux disease) Well controlled/stable with Nexium History of vertigo No current issues Meclizine PRN Hypothyroidism Situational anxiety Exercise / Class Metabolic Activity II 4-5 Yardwork/Stairs/Walk up hill (one FS: No CP, no SOB) Past Surgical History Surgical History History of anesthesia reaction Slow to wake History of carpal tunnel release Left History of section x1 History of cholecystectomy History of colonoscopy History of dilatation and curettage History of esophagogastroduodenoscopy (EGD) History of postoperative nausea and vomiting Pre/Postop per patient History of surgery "blood collection removed from voice box" (Age 40s) History of tooth extraction History of total knee arthroplasty (02/01/24) Right TKA + Left Knee Aspiration and Injection SAB at L3/4 (1 attempt) + regional, [facility] Past Anesthesia History Other (Slow to wake) * Sister: PONV/slow to wake History of PONV No Hx of Motion Sickness and History of PONV (Pre/Postop per patient ) Social History Smoking Status: Never smoker Do You Dip or Chew Tobacco: No Hx Alcohol Use: Yes alcohol intake frequency: holidays/special occasions only Hx Substance Use: No substance use type: does not use Review of Systems Patient denies chest pain, shortness of breath, dyspnea on exertion, fever, chills, cough, wheezing, palpitations. Physical Exam Vital Signs BP 124/84 P 73 TEMP 98.1 SP02 95%RA RESP 16 Physical Full cervical extension range of motion. Full TMJ range of motion. TMD 3 finger breaths Mallampati Score II Dentition: missing molars, upper left bridge side Lungs: clear throughout to auscultation Cardiac: regular rate and rhythm, no murmurs noted Spine: normal Carotid arteries: negative bruit Extremities: no LE edema Lab Results Anesthesia Preop Results Results Anesthesia Widget: WBC 5.06 K/ul (4.8-10.8) 01/08/25 Hgb 12.1 g/dl (12.0-16.0) 01/08/25 Hct 36.0 % (37.0-47.0) L 01/08/25 Plt 231 K/uL (130-400) 01/08/25 Na 142 mmol/L (136-145) 01/08/25 K 3.9 mmol/L (3.5-5.1) 01/08/25 Cl 108 mmol/L (98-107) H 01/08/25 CO2 28 mmol/L (21-32) 01/08/25 BUN 16 mg/dl (6-23) 01/08/25 Creat 0.65 mg/dl (0.6-1.2) 01/08/25 Glucose Level 88 mg/dl (70-99(Fasting)) 01/08/25 PT 10.1 Seconds (9.0-12.0) 01/08/25 PTT 25 Seconds (21-31) 01/08/25 INR 1.0 (0.9-1.1) 01/08/25 Blood Type O Positive 01/08/25 Antibody Screen NEGATIVE 01/08/25 Testing Electrocardiogram Date: 01/08/25 NSR. 66bpm. "Normal ECG" Chest X-Ray Date: 01/08/25 Impression: Persistent ill-defined opacity at the level of the left cardiophrenic angle. While nonspecific, this statistically relates to a fat pad, area of parenchymal scarring, or left anterior costochondral margin. No evidence of failure. No evidence of pneumonia. Preop testing including CXR forwarded to PCP for continuity of care.
--- NOTE | 2025-01-26 08:18 | History & Physical Report ---
Date of Service January 26, 2025 Assessment & Plan (1) Left knee DJD: 64-year-old female now 1 year out from her right knee replaced with varus left knee arthritis. She has failed conservative treatment. She is happy with the right knee and would like to have her left knee replaced. Plan: We are going to take her to the operating room and do a left knee replacement. The risks and bents of left knee replacement were explained. The patient understands informed consent was obtained. He is planned to be discharged home with home health. Will use aspirin for DVT prophylaxis. (2) Status post right knee replacement: (3) GERD (gastroesophageal reflux disease): (4) Hypothyroidism: (5) Elevated cholesterol: History of Present Illness Chief Complaint: . Persistent left knee pain and discomfort. Primary Care Provider: Conner Davila . The patient is a 64-year-old female with a long history of knee problems. We are following for the past several years. She has been through extensive conservative treatment provided by Dr. Cardenas as well as Dr. Pryor at [facility]. She underwent a right knee replacement about a year ago and is doing well from this. She continues to be limited by left knee pain discomfort. She has failed conservative measures. Very happy with her right knee and would like to have her left knee replaced. Allergies Allergy/AdvReac Type Severity Reaction Status Date / Time No Known Allergies Allergy Verified 12/27/24 14:32 Home Medications Medication Instructions Recorded Confirmed Type cholecalciferol (vitamin D3) 50 50 mcg PO QPM 04/08/23 12/27/24 History mcg (2,000 unit) capsule esomeprazole magnesium 20 mg 20 mg PO QAM 04/08/23 12/27/24 History capsule,delayed release (Nexium) famotidine 20 mg tablet 20 mg PO HS PRN gerd 04/08/23 12/27/24 History levothyroxine 100 mcg capsule 100 mcg PO QAM 04/08/23 12/27/24 History mecobalamin (vitamin B12) 500 mcg 500 mcg PO QPM 04/08/23 12/27/24 History chewable tablet meclizine 25 mg tablet 25 mg PO BID PRN Dizziness 11/23/23 12/27/24 History walker #1 ea 12/03/23 Rx rosuvastatin 5 mg tablet 5 mg PO QAM 12/27/24 12/27/24 History Past Med/Surg History Problem List (Updated 01/26/25 @ 08:16 by Keyshawn Haywood MD) Status post right knee replacement Left knee DJD Encounter for pre-operative examination Degenerative arthritis of knee, bilateral Medical History History of vertigo No current issues Meclizine PRN Arthritis GERD (gastroesophageal reflux disease) Well controlled/stable with Nexium Hypothyroidism Situational anxiety Elevated cholesterol Surgical History History of total knee arthroplasty (02/01/24) Right TKA + Left Knee Aspiration and Injection SAB at L3/4 (1 attempt) + regional, [facility] History of anesthesia reaction Slow to wake History of postoperative nausea and vomiting Pre/Postop per patient History of dilatation and curettage History of carpal tunnel release Left History of esophagogastroduodenoscopy (EGD) History of colonoscopy History of section x1 History of cholecystectomy History of tooth extraction History of surgery "blood collection removed from voice box" (Age 40s) Social History Smoking Status: Never smoker Tobacco Type: Cigarettes Second Hand Exposure: No; Do You Dip or Chew Tobacco: No; Hx Alcohol Use: Yes Alcohol type: beer Hx Substance Use: No Preferred Language: Mohawk Communication Ability: Effective Office Services Clerk Required: No Beliefs That Will Affect Care: None Current Living Situation: Spouse Feels Safe at Home: Yes Assistive Devices: Glasses and Other Review of Systems All systems reviewed & are unremarkable except as noted in HPI & below. Physical Exam . Physical examination reveals a healthy pleasant middle-aged female. Examination of the knees reveal patient ambulates independently. Examination of the right knee reveals a well-healed incision. No swelling. Range of motion 0-1 20. No pain with hip motion. Examination of the left knee reveals patient ambulates with a slight bit of varus thrust. She got bony hypertrophy medially and tender medially. Small knee effusion. Range of motion 5-1 25. No instability. No pain with hip motion. Constitutional WD/WN, vitals as above Neck trachea midline, no thyromegaly Respiratory normal respiratory effort, lungs clear to auscultation Cardiovascular RRR, no murmur, no edema Gastrointestinal (Abdomen) normal bowel sounds, soft, nontender, no hepatosplenomegaly Results & Data Results & Data Laboratory Results . Diagnostic Findings . X-ray of the left knee reviewed. Shows advanced left knee arthritis. She got complete loss of medial joint space. She has osteophytes medially. The right knee replacement looks in good position without problems. PG Care Time/CCT Total # of Minutes Spent Total Time Spent with Patient: Total time spent is greater than 50% in coordination of care (as documented) at patient's floor/unit and/or counseling patient: Coding Level of Care Code None Diagnoses Left knee DJD M17.12 Status post right knee replacement Z96.651 GERD (gastroesophageal reflux disease) K21.9 Hypothyroidism E03.9 Elevated cholesterol E78.00
[~2025-02-02 08:50] MED LIST changes: -ACETAMINOPHEN 500 MG TAB PO SCH; +BUPIVACAINE 0.5 % 5 MG/1 ML PF 10ML VIAL ONE; -CeleBREX 200 MG CAP PO SCH; -FAMOTIDINE 20 MG TAB PO SCH; -LR 500ML BOLUS, THEN 15ML/HR IV SCH; -LR 60ML/HR IV SCH; -METOCLOPRAMIDE HCL 10 MG TABLET PO SCH; -ROPIV 0.5% 246mg, Ketorolac 30mg, EPINEPHrine 0.5mg in NSS INFIL SCH; -TRANEXAMIC ACID 1,000 MG **IV Intra-op IV SCH; -ceFAZolin 2000MG 2,000 MG/15 ML SYR IV SCH
[2025-02-02] MEDS ORDERED: PROPOFOL IV EMULSION 10 MG/ML 100 ML VIAL IV ONE (09:24)
[2025-02-02] MEDS: LR 500ML BOLUS, THEN 15ML/HR IV SCH (09:24)
[2025-02-02] MEDS ORDERED: LIDOCAINE 2% 2 ML VIAL/AMP(20MG/ML) INFIL ONE (09:24)
[2025-02-02] MEDS ORDERED: MIDAZOLAM HCL 1 MG/ML 2ML VIAL ONE (09:24)
[2025-02-02] MEDS: FAMOTIDINE 20 MG TAB PO SCH (09:41)
[2025-02-02] MEDS: ACETAMINOPHEN 500 MG TAB PO SCH ×2 (09:41→15:17)
[2025-02-02] MEDS: METOCLOPRAMIDE HCL 10 MG TABLET PO SCH (09:41)
[2025-02-02] MEDS: LR 60ML/HR IV SCH (09:42)
[2025-02-02] MEDS: CeleBREX 200 MG CAP PO SCH (09:42)
[2025-02-02] MEDS: dexAMETHasone**PF** 10 MG/ML VIAL IV SCH (09:42)
[2025-02-02] MEDS ORDERED: PROMETHAZINE HCL 6.25 MG in SODIUM CHLORIDE 0.9% 50 ML IV PRN (10:26)
[2025-02-02] MEDS ORDERED: ATROPINE SULFATE 0.1 MG/ML 10ML SYR IV PRN (10:26)
[2025-02-02] MEDS ORDERED: HYDROmorphone INJ 2 MG/ML SYR/VIAL IV PRN (10:26)
[2025-02-02] MEDS ORDERED: ONDANSETRON INJ 2 MG/ML 2 ML VIAL IV PRN ×2 (10:26→14:45)
--- NOTE | 2025-02-02 10:33 | History & Physical Bridge Note ---
Date of Service February 02, 2025 History & Physical Bridge Note I have examined the patient, reviewed the History & Physical and in the interval since the performance of the History & Physical I have noted the following changes of clinical significance: no changes noted
[2025-02-02] MEDS ORDERED: PHENYLEPHRINE 100MCG/ML 5ML SYR ONE (11:17)
[2025-02-02] MEDS ORDERED: ePHEDrine sulfate 50 MG/5 ML SYR ONE (11:17)
[2025-02-02] MEDS: ORTHO JOINT ANESTHETIC ONE (11:22)
[2025-02-02] MEDS ORDERED: ONDANSETRON INJ 2 MG/ML 2 ML VIAL ONE (11:37)
[2025-02-02] MEDS: ROPIV 0.5% 246mg, Ketorolac 30mg, EPINEPHrine 0.5mg in NSS INFIL SCH (11:54)
--- NOTE | 2025-02-02 12:53 | Operative Report ---
PG Post Operative Report Pre & Post Diagnosis Operation Date: 02/02/25 10:50 Pre-Op Diagnosis: Left Knee Degenerative Joint Disease Post-Op Diagnosis: Left Knee Degenerative Joint Disease I identified the patient and participated in the time-out.: Yes Procedure Operation Date: 02/02/25 10:50 Actual Procedures p Left Total Knee Arthroplasty(Left) - Keyshawn Haywood MD Surgeon Keyshawn Haywood MD [address] Magistrate [place] Jacobo PA-C Estimated Blood Loss 50 Findings Consistent with Post-Op Diagnosis Specimens Left knee sent for pathology Anesthesia Type Spinal MAC Complications none Disposition Accompanied Patient To Recovery: No Indications The patient is a 64-year-old female with a long history of knee problems and progressive knee arthritis over time. She had a right right knee replaced just about a year ago and done well with that. She contributed by left knee pain discomfort. She failed all conservative measures. She elected proceed with left total knee arthroplasty. Description of Procedure Operative implants consists of: 1. Biomet Vanguard size 60 left posterior stabilized femoral component. 2. Biomet size 67 tibial tray. 3. 12 mm posterior stabilized polyethylene insert. 4. 25 x 8 all poly patella. The patient was taken to the op room, identified, placed on the operative table in the supine position. All contact areas were appropriately padded. IV antibiotics were tried by anesthesia team. A spinal anesthetic and adductor canal block had been provided in the holding area. A Hidalgo catheter was placed in sterile fashion. Left thigh tourniquet was then placed. The left lower extremity was then prepped and draped in usual sterile fashion. The left leg was elevated and exsanguinated with use of an Esmarch and tourniquet placed at 300 mmHg. An anterior approach of the left knee was then performed to longitudinal incision centered over the patella. Sharp dissection was Through subcutaneous tissue down the extensor mechanism. A medial parapatellar arthrotomy incision was made. Some subperiosteal dissection was carried out medially. The fat pad was resected from the patella tendon. The lateral patellofemoral ligament was released. Patella subluxated laterally knee was flexed. The osteophytes taken off distal femur. The ACL and PCL then released from distal femur the tibia subluxate anteriorly. The external tibial LYMErix then placed on the anterior face of the tibia and adjusted 14 mm medially. The proximal tibial cut was made to remove out a millimeter bone at most from the most deficient aspect medial tibial plateau. Some osteophytes taken off medially. The tibia sized to a size 67. Attention drawn to the femur. The distal femur was entered with a sharp drill. Intramedullary canal was suction. A left 5 degree valgus cutting guide was placed. Distal femoral cutting block was pinned in place. The distal femoral cut was made take an additional 3 mm of bone off distal femur. The femur was then sized to a size 60. The AP cutting block was pinned parallel to the epicondylar axis which was 4 degrees of external rotation. The anterior cut, anterior chamfer, posterior cut, posterior chamfer cuts were made. The box cutting guide was then placed and adjusted slightly laterally. The box cut was made. The knee was flexed. The remnants of the medial and lateral menisci were excised. The osteophytes taken off the posterior aspect of femur. A trial femoral component was placed. The tibial tray was pinned in Marlyn external rotation and the drill and stem points used great defect in the proximal tibia for the tibial tray. Knee was then trialed and the 12 mm insert fit most appropriately. Attention drawn the patella. The patella was cleaned of all soft tissue. Patella thickness measured about 21 mm in thickness was cut down to 13. Was sized to a size 25 patella. The lug holes were drilled for the 25 patella. The lateral osteophytes removed. The patella button was placed. Knee was taken through range of motion patella tracked nicely with no thumbs test. Attention then drawn to placement permanent components. All trial components were removed. Bone plug was placed into distal femur limit blood loss. A double batch Palacos G cement was mixed. Biomet Vanguard size 60 left posterior stabilized femoral component, size 67 tibial tray, a 12 mm Po stabilized polyethylene insert, and a 25 x 8 all poly patella then cemented in place. The knee was brought out into full extension till cement hardened. Final cement check was then performed. Pericapsular tissues were injected with total of 100 cc of Ortho mix. The patient did receive 1 g tranexamic acid. The tourniquet was then let down for final tourniquet time of 61 minutes. Hemostasis assured use electrocautery. Extensor Meclomen closed with combination 1 PDS suture #1 Vicryl suture in a [id number] fashion. Extensor Meclomen checked found to be intact. Subcutaneous tissue then closed with 2 Dexon suture in a buried interrupted fashion skin was closed skin joselin. Leg was then cleaned and dried and a sterile dressing with Xeroform, 4 fours, sterile cast padding, Vahe bandage were applied. The patient then tra nsferred to the recovery room in stable condition. Patient tolerated the procedure well and there were no complications. Freedmo Jacobo, my physician welder assistant, was present for the entire procedure. His assistance was essential and required for appropriate patient positioning, prepping and draping, surgical exposure, performing the technical details of the operation, placement the implants, closure of the wound, and placement of the sterile bandage. I attest to the content of the Intraoperative Record and any orders documented therein. Any exceptions are noted below.
--- NOTE | 2025-02-02 13:18 | XRay Report ---
XR knee LT 1 or 2V routine CLINICAL HISTORY: Postoperative evaluation. COMPARISON: Left knee radiographs November 10, 2024. FINDINGS: Alignment of the total left knee arthroplasty is anatomic. There is no periprosthetic frac ture or unexpected radiopaque foreign body. There are skin joselin. IMPRESSION: Expected findings following total left knee arthroplasty. ACT 112: Negative or not required by law. Electronically signed by: Chano Good M.D. 02/02/2025 1:16 PM
--- NOTE | 2025-02-02 13:29 | Anesthesiology Progress Note ---
Date of Service February 02, 2025 Anesthesia Post Procedure Vital Signs Vital Signs: Temp Pulse Resp BP Pulse Ox O2 Del Method 02/02/25 13:15 36.3 C L 72 20 110/60 96 Room Air 02/02/25 13:05 72 16 114/63 97 Room Air 02/02/25 12:55 75 16 119/62 93 Room Air 02/02/25 12:48 36.2 C L 83 12 117/59 L 95 Room Air 02/02/25 09:25 36.8 C 69 18 153/94 H 98 Room Air Transfer of Care Handoff Completed per policy Notes Mental Status: alert / awake / arousable and participated in evaluation Patient Amnestic to Procedure: Yes Nausea / Vomiting: adequately controlled Pain: adequately controlled Airway Patency, RR, SpO2: stable & adequate BP & HR: stable & adequate Hydration State: stable & adequate Neuraxial Anesthesia: was administered and sensory block is resolving Anesthetic Complications: no major complications apparent
[2025-02-02] MEDS ORDERED: MAGNESIUM HYDROXIDE SUSP 30 ML UDC PO PRN (14:45)
[2025-02-02] MEDS ORDERED: diphenhydrAMINE Capsule 25 MG CAP PO PRN (14:45)
[2025-02-02] MEDS ORDERED: ALUMINUM/MAGNESIUM SUSP 30 ML UDC PO PRN (14:45)
[2025-02-02] MEDS ORDERED: NALOXONE HCL 0.4 MG/1 ML VIAL/CARP IV PRN (14:45)
[2025-02-02] MEDS ORDERED: HYDROmorphone INJ 0.5 MG/0.5 ML SYR IV PRN (14:45)
[2025-02-02] MEDS ORDERED: FAMOTIDINE 20 MG TAB PO PRN (14:45)
[2025-02-02] MEDS ORDERED: MECLIZINE HCL 25 MG TAB PO PRN (14:45)
[2025-02-02] MEDS ORDERED: METOCLOPRAMIDE HCL INJ 5 MG/ML 2 ML VIAL IV PRN (14:45)
[2025-02-02] MEDS: SODIUM CHLORIDE 0.9% 1,000 ML IV SCH (15:17)
[2025-02-02] MEDS: ASCORBIC ACID 500 MG TAB PO SCH (16:35)
[2025-02-02] MEDS: KETOROLAC TROMETHAMINE 15 MG/ML VIAL IV SCH (18:34)
[2025-02-02] MEDS: TRANEXAMIC ACID / 0.7% NACL 1,000 MG/100 ML BAG IV SCH (18:35)
[2025-02-02 19:11] VITALS: RESP 16
[2025-02-02] MEDS: CHOLECALCIFEROL 25 MCG (1000 UNITS) TAB PO SCH (20:21)
[2025-02-02] MEDS: CYANOCOBALAMIN (B-12) 500 MCG TABLET PO SCH (20:21)
[2025-02-02] MEDS: DOCUSATE SODIUM 100 MG CAP PO SCH (20:21)
[2025-02-02] MEDS: ASPIRIN 81 MG ECTAB PO SCH (20:21)
[2025-02-02] MEDS: SENNA 8.6 MG TAB PO SCH (20:21)
[2025-02-02] MEDS ORDERED: SENNA 8.6 MG TAB PO SCH (21:00)
[2025-02-03] MEDS: LEVOTHYROXINE SODIUM 100 MCG TABLET PO SCH (05:53)
[2025-02-03 06:36] LABS: Hematocrit (blood only) 27.9 % (37.0-47.0); Hemoglobin 9.4 g/dL (12.0-16.0); Mean Corpuscular Hemoglobin 29.8 pg (25.0-34.0); Mean Corpuscular Volume 88.6 fL (80.0-100.0); Platelet Count 183 K/uL (130-400); RDW Standard Deviation 39.8 fL (36.4-46.3); Red Blood Count 3.15 M/uL (4.20-5.40); White Blood Count 8.63 K/ul (4.8-10.8)
[2025-02-03 07:07] LABS: Anion Gap 5.0 (3-11); Blood Urea Nitrogen 15.0 mg/dl (6-23); Calcium 8.3 mg/dl (8.6-10.3); Carbon Dioxide 24.0 mmol/L (21-32); Chloride 109.0 mmol/L (98-107); Creatinine Clr Calc Pharmacy 56.5 ml/min; Glucose 96.0 mg/dl (70-99(Fasting)); Potassium 3.6 mmol/L (3.5-5.1); Sodium 138.0 mmol/L (136-145)
--- NOTE | 2025-02-03 07:35 | Orthopedic Progress Note ---
Date of Service February 03, 2025 Assessment & Plan (1) Status post left knee replacement: Plan: 64-year-old female postop day 1 from left knee replacement. She is doing quite well. Pain is controlled. She is neurologically intact. Plan: 1. DVT prophylaxis including thigh-high teds, SCDs, aspirin twice a day. 2. PT/OT. Weight-bear as tolerated. Left total knee protocol. 3. Pain control. Doing currently well with current pain regimen. 4. Disposition. Plan is to discharge to home after therapy this morning. (2) Status post right knee replacement: Admission and Anticipated Discharge Date Admission Date: February 02, 2025 Subjective 64-year-old female postop day 1 from left knee replacement. She is doing well. Had a pretty good night. Pains controlled. No chest pain or shortness of breath. She is looking forward to going home. Physical Exam Physical Exam: Physical nation is a pleasant middle-age female. Lying in bed looks quite comfortable this morning. Examination of the left leg reveals the dressing be clean dry and intact. There is no drainage. She can dorsiflex and plantarflex her foot appropriately. She can do a good straight leg raise. Constitutional: WD/WN, vitals as above Respiratory: normal respiratory effort, lungs clear to auscultation Cardiovascular: RRR, no murmur, no edema Gastrointestinal (Abdomen): normal bowel sounds, soft, nontender, no hepatosplenomegaly Results & Data Vital Signs (Past 12 Hours) Vital Signs Temp Pulse Resp BP Pulse Ox O2 Del Method 02/03/25 03:20 36.8 C 77 16 102/61 96 Room Air 02/02/25 23:00 36.7 C 76 16 117/71 96 Room Air 02/02/25 20:05 Room Air Laboratory Results Hemoglobin 9.4. Hematocrit 27.9. Electrolytes are stable
[2025-02-03 07:53] VITALS: BP 130/79; TEMP 98.1; O2SAT 94
[2025-02-03] MEDS: MULTIVITAMIN TAB PO SCH (08:12)
[2025-02-03] MEDS: ROSUVASTATIN CALCIUM 5 MG TAB PO SCH (08:12)
[2025-02-03] MEDS: dexAMETHasone 10 MG in SYRINGE 0 ML IV SCH (08:13)
[2025-02-03] MEDS ORDERED: ASCORBIC ACID 1000 MG PO SCH (09:00)
[2025-02-03 10:00] VITALS: PULSE 80
== END 2025-02-03 11:32 | disposition home health service (06) ==
LOC: ASU 08:50 → 3N 08:50